=== PATIENT | male | born 1960 | race Caucasian/White ===

== ENCOUNTER 2021-01-20 09:05 | Day surgery (SDC) | payer OTHER, SELFPAY ==
[2021-01-13 10:13] LABS: BASOPHILS % (AUTO) 0.5 % (0.0-2.0); EOSINOPHILS # (AUTO) 0.1 K/uL (0.0-0.4); EOSINOPHILS % (AUTO) 1.5 % (0.0-4.0); HEMATOCRIT 48.4 % (36-54); HEMOGLOBIN 16.4 g/dL (14.0-18.0); LYMPHOCYTES % (AUTO) 39.3 % (20.5-51.5); MEAN CORPUSCULAR HEMOGLOBIN 32 pg (27-31); MEAN CORPUSCULAR HGB CONC 34 % (32-36); MEAN CORPUSCULAR VOLUME 94 fL (79.0-98.0); MONOCYTES # (AUTO) 0.5 K/uL (0.0-1.0); MONOCYTES % (AUTO) 9.6 % (1.7-9.3); NEUTROPHILS # (AUTO) 2.5 K/uL (1.8-7.7); NEUTROPHILS % (AUTO) 49.1 % (40.0-70.0); PLATELET COUNT (AUTO) 122 K/uL (130-430); RED BLOOD CELL COUNT(AUTO) 5.15 MIL/uL (4.2-6.2); RED CELL DISTRIBUTION WIDTH 13.6 % (9.0-15.0); WHITE BLOOD COUNT (AUTO) 5.1 K/uL (4.8-10.8)
[2021-01-13 10:16] LABS: BILIRUBIN,URINE NEGATIVE (NEGATIVE); BLOOD, URINE NEGATIVE (NEGATIVE); CLARITY/URINE CLEAR (CLEAR); COLOR,URINE YELLOW (YELLOW); GLUCOSE,URINE 1+ (NEGATIVE); KETONES,URINE NEGATIVE (NEGATIVE); LEUKOCYTE ESTERASE ,URINE NEGATIVE (NEGATIVE); NITRITE, URINE NEGATIVE (NEGATIVE); PROTEIN URINE 1+ (NEGATIVE); UROBILINOGEN,URINE 0.2 (0.2-1.0)
[2021-01-13 10:17] LABS: CALCIUM 9.4 mg/dL (8.4-11.0); CREATININE 1.28 mg/dL (0.55-1.30); POTASSIUM 3.9 mmol/L (3.5-5.1)
[2021-01-13 10:20] LABS: INR 1.1 (0.80-1.20)
[2021-01-13 11:33] LABS: BACTERIA,URINE None Seen /HPF (None Seen); RBC,URINE 0-3 /HPF (0-3); WBC,URINE NONE SEEN /HPF (0-3)
[~2021-01-20] VITALS: Ht 160 cm; Wt 77.1 kg
[~2021-01-20 09:05] MED LIST: cefTRIAXone 1 GM IVPB PREMIX 50 ML IV ONE
[2021-01-20] MEDS ORDERED: LR 1,000 ML IV SCH (13:45)
[2021-01-20] MEDS ORDERED: HYDROmorphone 1 MG/ML INJ. CARTRIDGE IVP PRN (13:45)
[2021-01-20] MEDS ORDERED: KETOROLAC TROMETHAMINE 30 MG VIAL IVP PRN (13:45)
[2021-01-20] MEDS ORDERED: ONDANSETRON HCL 4 MG/2 ML VIAL IVP PRN (13:45)
[2021-01-20] MEDS ORDERED: MEPERIDINE HCL/PF 25 MG/ML DISP.SYRIN IVP PRN (13:45)
[2021-01-20] MEDS ORDERED: ONDANSETRON HCL 4 MG/2 ML VIAL ONE (14:14)
[2021-01-20] MEDS ORDERED: SUCCINYLCHOLINE CHLORIDE 20 MG/ML(QUELICIN) ONE (14:14)
[2021-01-20] MEDS ORDERED: PROPOFOL 200MG/ 20ML VIAL (DIPRIVAN) IV ONE (14:14)
[2021-01-20] MEDS ORDERED: METOCLOPRAMIDE HCL 10 MG/2 ML VIAL ONE (14:14)
[2021-01-20] MEDS ORDERED: MIDAZOLAM HCL 5 MG/ML VIAL (VERSED) IV ONE (14:14)
[2021-01-20] MEDS ORDERED: SEVOFLURANE 15 MIN GAS INH ONE (14:14)
[2021-01-20] MEDS ORDERED: fentaNYL CITRATE/PF 100 MCG/2 ML AMP ONE (14:14)
[2021-01-20] MEDS ORDERED: LR 1,000 ML IV.SOLN IV ONE (14:14)
[2021-01-20] MEDS ORDERED: NS IRRIG SOLN 1000 ML IR ONE (14:14)
[2021-01-20] MEDS ORDERED: ePHEDrine sulfate 50 MG/ML VIAL ONE (14:14)
[2021-01-20] MEDS ORDERED: DEXAMETHASONE SOD PHOSPHATE 4 MG/ML VIAL ONE (14:14)
[2021-01-20] MEDS ORDERED: WATER FOR IRRIGATION,STERILE 1,000 ML IRRIG.SOLN IR ONE (14:14)
[2021-01-20] MEDS ORDERED: BUPIVACAINE /PF 0.25% 30 ML VIAL INJ ONE (14:14)
[2021-01-20 15:59] VITALS: BP_SYST 127
== END 2021-01-20 16:40 | disposition home or self-care (01) ==
LOC: SDS 09:05 → SMU 09:10 → SDS 16:40
PROVIDERS: ATTEND Urology
DX: R39.15 Urgency of urination (principal); R35.0 Frequency of micturition; N32.81 Overactive bladder; Z79.01 Long term (current) use of anticoagulants; Z79.899 Other long term (current) drug therapy; Z20.822 Contact with and (suspected) exposure to COVID-19
CPT/HCPCS: 36415; 64581; 71046; 76000; 80048; 81000; 82962; 85025; 85610; 85730; 87086; C1767; C1769; C1778; C1787; J0330; J0696; J1100; J2250; J2405; J2704; J2765; J3010; J3490; J7120; U0003

== ENCOUNTER 2021-03-10 06:54 | Day surgery (SDC) | payer OTHER, SELFPAY ==
[~2021-03-10] VITALS: Ht 160 cm; Wt 77.1 kg
[2021-03-10] MEDS ORDERED: fentaNYL CITRATE/PF 100 MCG/2 ML AMP ONE (08:34)
[2021-03-10] MEDS ORDERED: SIMETHICONE 40 MG/0.6 ML ML ONE (08:34)
[2021-03-10] MEDS ORDERED: MIDAZOLAM HCL 5 MG/5 ML VIAL ONE (08:34)
[2021-03-10 14:48] VITALS: BP_SYST 116
== END 2021-03-10 11:40 | disposition home or self-care (01) ==
LOC: SDS 06:54 → SMU 06:56 → EDUNIT# 08:00 → SDS 11:40
PROVIDERS: ATTEND Internal Medicine Gastroenterology
DX: Z12.11 Encounter for screening for malignant neoplasm of colon (principal); D12.8 Benign neoplasm of rectum; K57.30 Diverticulosis of large intestine without perforation or abscess without bleeding; K64.8 Other hemorrhoids; K64.4 Residual hemorrhoidal skin tags; Z86.010 Personal history of colon polyps; Z79.899 Other long term (current) drug therapy; Z20.822 Contact with and (suspected) exposure to COVID-19
CPT/HCPCS: 45385; 82962; 88305; 99152; G0378; J2250; J3010; U0003

== ENCOUNTER 2022-05-11 16:39 | Emergency (ER) | payer OTHER ==
[~2022-05-11] VITALS: Ht 160 cm; Wt 74.8 kg
[2022-05-11 17:14] VITALS: BP_SYST 126
[2022-05-11 17:47] LABS: HEMATOCRIT 48.8 % (36-54); HEMOGLOBIN 16.1 g/dL (14.0-18.0); MEAN CORPUSCULAR HEMOGLOBIN 31 pg (27-31); MEAN CORPUSCULAR HGB CONC 33 % (32-36); MEAN CORPUSCULAR VOLUME 93 fL (79.0-98.0); PLATELET COUNT (AUTO) 169 K/uL (130-430); RED BLOOD CELL COUNT(AUTO) 5.25 MIL/uL (4.2-6.2); RED CELL DISTRIBUTION WIDTH 14.5 % (9.0-15.0); WHITE BLOOD COUNT (AUTO) 11.7 K/uL (4.8-10.8)
[2022-05-11 17:56] LABS: ANION GAP 9 (5-15); CHLORIDE 104 mmol/L (98-107); GLUCOSE 310 mg/dL (70-99); UREA NITROGEN, BLOOD 28 mg/dL (8-21)
[2022-05-11 17:58] LABS: GFR AFRICAN AMERICAN 56 mL/min (>90)
[2022-05-11 18:08] LABS: ALANINE AMINOTRANSFERASE 41 U/L (12-78); ALBUMIN 3.6 g/dL (3.4-4.8); ASPARTATE AMINOTRANSFERASE 20 U/L (10-37); TOTAL BILIRUBIN 0.4 mg/dL (0.0-1.0)
[2022-05-11 18:10] LABS: C-REACTIVE PROTEIN QUANT < 0.2 mg/dL (0-0.5)
[2022-05-11 18:51] LABS: BAND % (MANUAL) 1 % (0-6); BASOPHILS % (MANUAL) 0 % (0-2); EOSINOPHILS % (MANUAL) 0 % (0-7); LYMPHOCYTES % (MANUAL) 7 % (20-46); MONOCYTES % (MANUAL) 16 % (0-11)
[2022-05-11] MEDS ORDERED: HYDR-3917 PO (21:07)
[2022-05-11 22:03] VITALS: BP_SYST 126
== END 2022-05-11 22:03 | disposition home or self-care (01) ==
LOC: SED 16:39
DX: J18.9 Pneumonia, unspecified organism (principal); R07.81 Pleurodynia; R05.9 Cough, unspecified; E78.5 Hyperlipidemia, unspecified; E11.9 Type 2 diabetes mellitus without complications; I10 Essential (primary) hypertension; Z79.899 Other long term (current) drug therapy; Z20.822 Contact with and (suspected) exposure to COVID-19
CPT/HCPCS: 36415; 71045; 76376; 80053; 82550; 83605; 83880; 85007; 85027; 86140; 99285

== ENCOUNTER 2022-06-17 06:26 | Outpatient (CLI) | payer OTHER ==
[~2022-06-17 06:26] MED LIST changes: +HYDR-3917 PO; -cefTRIAXone 1 GM IVPB PREMIX 50 ML IV ONE
[2022-06-17] MEDS ORDERED: REGADENOSON 0.4 MG/5 ML SYRINGE IVP ONE (08:00)
== END 2022-06-17 19:49 | disposition home or self-care (01) ==
LOC: SNM 06:26
PROVIDERS: ATTEND Internal Medicine Cardiovascular Disease
DX: I48.20 Chronic atrial fibrillation, unspecified (principal); R00.2 Palpitations
CPT/HCPCS: 78452; 93017; A9500; J2785

== ENCOUNTER 2023-02-04 10:46 | Outpatient (CLI) | payer OTHER | END 2023-02-04 18:23 | disposition home or self-care (01) | LOC: SRD 10:46 | PROVIDERS: ATTEND Urology Pediatric Urology | DX: N20.0 Calculus of kidney (principal); R10.9 Unspecified abdominal pain | CPT/HCPCS: 74018 ==

== ENCOUNTER 2023-05-19 10:26 | Outpatient (CLI) | payer OTHER | END 2023-05-19 19:07 | disposition home or self-care (01) | LOC: SCA 10:26 | PROVIDERS: ATTEND Internal Medicine Cardiovascular Disease | DX: I08.3 Combined rheumatic disorders of mitral, aortic and tricuspid valves (principal) | CPT/HCPCS: 93306 ==

== ENCOUNTER 2023-09-28 22:24 | Inpatient (IN) | payer OTHER ==
[~2023-09-28] VITALS: Ht 160 cm; Wt 74.8 kg
[2023-09-28 23:22] LABS: BASOPHILS % (AUTO) 0.6 % (0.0-2.0); BILIRUBIN,URINE NEGATIVE (NEGATIVE); BLOOD, URINE NEGATIVE (NEGATIVE); COLOR,URINE YELLOW (YELLOW); EOSINOPHILS # (AUTO) 0.1 K/uL (0.0-0.4); EOSINOPHILS % (AUTO) 2.3 % (0.0-4.0); GLUCOSE,URINE 3+ (NEGATIVE); HEMATOCRIT 46.9 % (36-54); HEMOGLOBIN 15.9 g/dL (14.0-18.0); KETONES,URINE NEGATIVE (NEGATIVE); LEUKOCYTE ESTERASE ,URINE NEGATIVE (NEGATIVE); LYMPHOCYTES # (AUTO) 1.7 K/uL (1.0-5.5); LYMPHOCYTES % (AUTO) 27.5 % (20.5-51.5); MEAN CORPUSCULAR HEMOGLOBIN 32 pg (27-31); MEAN CORPUSCULAR HGB CONC 34 % (32-36); MEAN CORPUSCULAR VOLUME 95 fL (79.0-98.0); MONOCYTES % (AUTO) 16.8 % (1.7-9.3); NEUTROPHILS # (AUTO) 3.2 K/uL (1.8-7.7); NEUTROPHILS % (AUTO) 52.8 % (40.0-70.0); NITRITE, URINE NEGATIVE (NEGATIVE); PLATELET COUNT (AUTO) 128 K/uL (130-430); PROTEIN URINE TRACE (NEGATIVE); RED BLOOD CELL COUNT(AUTO) 4.95 MIL/uL (4.2-6.2); RED CELL DISTRIBUTION WIDTH 14.7 % (9.0-15.0); UROBILINOGEN,URINE 0.2 (0.2-1.0); WHITE BLOOD COUNT (AUTO) 6.1 K/uL (4.8-10.8)
[2023-09-28 23:40] LABS: CLARITY/URINE HAZY (CLEAR)
[2023-09-28 23:41] VITALS: BP_SYST 112; PULSE 89; RESP 18; TEMP 97.9; O2SAT 98
[2023-09-28 23:51] LABS: BACTERIA,URINE None Seen /HPF (None Seen); RBC,URINE 0-3 /HPF (0-3); WBC,URINE 0-3 /HPF (0-3)
[2023-09-29] VITALS (7 sets, daily range): BP systolic 115–139; PULSE 77–81; RESP 18–20; TEMP 95.1–98.6; O2SAT 93–99
[2023-09-29 00:07] LABS: ALBUMIN 3.8 g/dL (3.4-4.8); BILIRUBIN,DIRECT 0.2 mg/dL (0.0-0.3); CALCIUM 8.7 mg/dL (8.4-11.0); CREATININE 1.61 mg/dL (0.55-1.30); POTASSIUM 3.8 mmol/L (3.5-5.1); TOTAL BILIRUBIN 0.7 mg/dL (0.0-1.0); TOTAL PROTEIN, SERUM 7.6 g/dL (6.4-8.3)
[2023-09-29] MEDS: ASPIRIN 325 MG TABLET PO ONE ×2 (03:18→04:33)
[2023-09-29] MEDS: MORPHINE 4 MG INJ. 4 MG/ML VIAL IVP ONE (03:18)
[2023-09-29] MEDS: NITROGLYCERIN 1 INCH (GM) OINT. TP ONE (03:19)
[2023-09-29] MEDS ORDERED: CARV25TA55 PO (03:31)
[2023-09-29] MEDS ORDERED: ASA81 PO (03:31)
[2023-09-29] MEDS ORDERED: AMLO2.5T2 PO (03:31)
[2023-09-29] MEDS ORDERED: LIP40 PO (03:31)
[2023-09-29] MEDS ORDERED: FENO48TA8 PO (03:31)
[2023-09-29] MEDS ORDERED: ZOLP5TAB2 PO (03:31)
[2023-09-29] MEDS ORDERED: GLIP10TA21 PO (03:31)
[2023-09-29] MEDS ORDERED: APIX5TAB PO (03:32)
[2023-09-29] MEDS: ENOXAPARIN SODIUM 80 MG/0.8 ML SYRINGE SUBCUT ONE (04:42)
[2023-09-29] MEDS ORDERED: ACETAMINOPHEN 325 MG TABLET PO PRN (05:00)
[2023-09-29] MEDS ORDERED: IPRATROPIUM BROM 0.5 MG/2.5 ML VIAL.NEB (ATROVENT) INH PRN (05:00)
[2023-09-29] MEDS ORDERED: ONDANSETRON HCL 4 MG/2 ML VIAL IVP PRN (05:00)
[2023-09-29] MEDS ORDERED: NITROGLYCERIN 0.4 MG TAB.SUBL SL PRN (05:00)
[2023-09-29] MEDS ORDERED: ALBUTEROL SULFATE 0.083% 2.5 MG/3 ML VIAL.NEB INH PRN (05:00)
[2023-09-29] MEDS ORDERED: DEXTROSE 50% JECT 50 ML DISP.SYRIN IVP PRN (05:15)
[2023-09-29] MEDS ORDERED: D5W 1,000 ML IV PRN (05:15)
[2023-09-29] MEDS ORDERED: GLUCOSE (DEXTROSE) ORAL GEL -Adults PO PRN (05:15)
[2023-09-29] MEDS: ASPIRIN 81 MG TAB.CHEW PO SCH (08:05)
[2023-09-29] MEDS: amLODIPine BESYLATE 5 MG TABLET PO SCH (08:05)
[2023-09-29] MEDS: FENOFIBRATE NANOCRYSTALLIZED 48 MG TABLET (TRICOR) PO SCH (08:36)
[2023-09-29] MEDS: APIXABAN 2.5 MG TABLET PO SCH (08:38)
[2023-09-29] MEDS: CARVEDILOL 25 MG TABLET (COREG) PO SCH (08:40)
[2023-09-29] MEDS: MORPHINE 2 MG/ML INJ. SYRINGE IVP PRN (08:57)
[2023-09-29] MEDS ORDERED: NOREPINEPHRINE BITARTRATE 4 MG in NS 246 ML IV PRN (10:00)
[2023-09-29] MEDS: INSULIN REGULAR, HUMAN 100 UNITS/ML, 3 ML VIAL (humuLIN R) SUBCUT PRN (11:28)
[2023-09-29 11:36] LABS: CHOLESTEROL 111 mg/dL (<200); HDL CHOLESTEROL 48 mg/dL (>45); TRIGLYCERIDES 115 mg/dL (30-150)
[2023-09-29 15:41] LABS: BASOPHILS % (AUTO) 0.7 % (0.0-2.0); EOSINOPHILS # (AUTO) 0.1 K/uL (0.0-0.4); EOSINOPHILS % (AUTO) 1.9 % (0.0-4.0); HEMATOCRIT 47.8 % (36-54); LYMPHOCYTES # (AUTO) 1.7 K/uL (1.0-5.5); LYMPHOCYTES % (AUTO) 24.7 % (20.5-51.5); MEAN CORPUSCULAR HEMOGLOBIN 32 pg (27-31); MEAN CORPUSCULAR HGB CONC 34 % (32-36); MEAN CORPUSCULAR VOLUME 95 fL (79.0-98.0); MONOCYTES % (AUTO) 14.6 % (1.7-9.3); NEUTROPHILS % (AUTO) 58.1 % (40.0-70.0); PLATELET COUNT (AUTO) 132 K/uL (130-430); RED BLOOD CELL COUNT(AUTO) 5.03 MIL/uL (4.2-6.2); RED CELL DISTRIBUTION WIDTH 14.8 % (9.0-15.0)
[2023-09-29 16:17] LABS: ALBUMIN 3.6 g/dL (3.4-4.8); CALCIUM 8.9 mg/dL (8.4-11.0); CREATININE 1.39 mg/dL (0.55-1.30); POTASSIUM 4.1 mmol/L (3.5-5.1); TOTAL BILIRUBIN 0.5 mg/dL (0.0-1.0); TOTAL PROTEIN, SERUM 7.4 g/dL (6.4-8.3)
[2023-09-29] MEDS: NAPROXEN 250 MG TABLET PO PRN (16:17)
[2023-09-29 17:18] LABS: HEMOGLOBIN A1C 7.29 % (<5.7)
[2023-09-29] MEDS: ATORVASTATIN 20 MG TABLET PO SCH (20:14)
[2023-09-30] VITALS (7 sets, daily range): BP systolic 122–138; PULSE 77–99; RESP 17–19; TEMP 97.2–98.5; O2SAT 95–99
[2023-09-30] MEDS: HYDROcodone/ACETAMIN 5-325 MG TAB (NORCO/ VICODIN) PO PRN (04:43)
[2023-09-30 06:15] LABS: BASOPHILS % (AUTO) 0.3 % (0.0-2.0); EOSINOPHILS # (AUTO) 0.2 K/uL (0.0-0.4); HEMATOCRIT 48.1 % (36-54); HEMOGLOBIN 15.9 g/dL (14.0-18.0); LYMPHOCYTES # (AUTO) 1.4 K/uL (1.0-5.5); LYMPHOCYTES % (AUTO) 15.4 % (20.5-51.5); MEAN CORPUSCULAR HEMOGLOBIN 32 pg (27-31); MEAN CORPUSCULAR HGB CONC 33 % (32-36); MEAN CORPUSCULAR VOLUME 95 fL (79.0-98.0); MONOCYTES # (AUTO) 1.1 K/uL (0.0-1.0); NEUTROPHILS # (AUTO) 6.6 K/uL (1.8-7.7); NEUTROPHILS % (AUTO) 70.3 % (40.0-70.0); PLATELET COUNT (AUTO) 128 K/uL (130-430); RED BLOOD CELL COUNT(AUTO) 5.05 MIL/uL (4.2-6.2); RED CELL DISTRIBUTION WIDTH 14.4 % (9.0-15.0); WHITE BLOOD COUNT (AUTO) 9.4 K/uL (4.8-10.8)
[2023-09-30 06:44] LABS: ALBUMIN 3.8 g/dL (3.4-4.8); CALCIUM 8.3 mg/dL (8.4-11.0); CREATININE 1.37 mg/dL (0.55-1.30); TOTAL BILIRUBIN 0.8 mg/dL (0.0-1.0); TOTAL PROTEIN, SERUM 7.5 g/dL (6.4-8.3)
[2023-09-30] MEDS: COLCHICINE 0.6 MG TABLET PO SCH (08:14)
[2023-09-30] MEDS: DOXYCYCLINE HYCLATE 100 MG TABLET PO SCH (08:14)
[2023-09-30] MEDS: DOCUSATE SODIUM 100 MG CAPSULE PO SCH (08:16)
[2023-09-30] MEDS: BENZONATATE 100 MG CAPSULE (TESSALON) PO PRN (08:27)
[2023-09-30] MEDS ORDERED: NAPROXEN 250 MG TABLET PO SCH (09:00)
[2023-09-30] MEDS: CYCLOBENZAPRINE HCL 10 MG TABLET (FLEXERIL) PO ONE (11:11)
[2023-09-30] MEDS: LIDOCAINE PATCH 5% 1 EA TP ONE (11:11)
[2023-09-30] MEDS: CYCLOBENZAPRINE HCL 10 MG TABLET (FLEXERIL) PO SCH (15:08)
[2023-09-30] MEDS: LACTULOSE 20 GM/30 ML UDC PO PRN (15:09)
[2023-10-01] VITALS: BP_SYST 134; PULSE 99; RESP 17; TEMP 97.8; O2SAT 98
[2023-10-01 08:00] VITALS: BP_SYST 124; PULSE 102; RESP 18; TEMP 97.3; O2SAT 96
[2023-10-01 08:13] LABS: BASOPHILS % (AUTO) 0.5 % (0.0-2.0); EOSINOPHILS # (AUTO) 0.2 K/uL (0.0-0.4); EOSINOPHILS % (AUTO) 2.9 % (0.0-4.0); HEMATOCRIT 47.4 % (36-54); HEMOGLOBIN 15.7 g/dL (14.0-18.0); LYMPHOCYTES # (AUTO) 1.5 K/uL (1.0-5.5); LYMPHOCYTES % (AUTO) 27.8 % (20.5-51.5); MEAN CORPUSCULAR HEMOGLOBIN 32 pg (27-31); MEAN CORPUSCULAR HGB CONC 33 % (32-36); MEAN CORPUSCULAR VOLUME 96 fL (79.0-98.0); MONOCYTES # (AUTO) 0.8 K/uL (0.0-1.0); MONOCYTES % (AUTO) 13.7 % (1.7-9.3); NEUTROPHILS % (AUTO) 55.1 % (40.0-70.0); PLATELET COUNT (AUTO) 129 K/uL (130-430); RED BLOOD CELL COUNT(AUTO) 4.97 MIL/uL (4.2-6.2); RED CELL DISTRIBUTION WIDTH 14.3 % (9.0-15.0); WHITE BLOOD COUNT (AUTO) 5.5 K/uL (4.8-10.8)
[2023-10-01 08:30] LABS: ALBUMIN 3.5 g/dL (3.4-4.8); CALCIUM 8.7 mg/dL (8.4-11.0); CREATININE 1.31 mg/dL (0.55-1.30); TOTAL BILIRUBIN 1.1 mg/dL (0.0-1.0); TOTAL PROTEIN, SERUM 7.2 g/dL (6.4-8.3)
[2023-10-01] MEDS: LIDOCAINE PATCH 5% 1 EA TP SCH (08:37)
[2023-10-01 08:45] VITALS: O2SAT 98
[2023-10-01] MEDS ORDERED: CYCL10TA25 PO (09:24)
[2023-10-01] MEDS ORDERED: DOXY100C5 PO (09:24)
[2023-10-01] MEDS ORDERED: COLC0.6T67 PO (09:24)
[2023-10-01] MEDS ORDERED: Lidocaine Patch 5% TP (09:24)
[2023-10-01] MEDS ORDERED: BENZ100C92 PO (09:24)
[2023-10-01 11:06] VITALS: BP_SYST 115; PULSE 78; RESP 15; TEMP 97.2; O2SAT 97
[2023-10-01 13:50] VITALS: BP_SYST 101; PULSE 84; RESP 16; TEMP 97.5; O2SAT 98
== END 2023-10-01 14:45 | disposition home or self-care (01) | DRG 204 ==
LOC: SED 22:24 → STU 09-29 04:48
PROVIDERS: ADMIT Internal Medicine; ATTEND Internal Medicine
DX: R07.81 Pleurodynia (principal); I13.0 Hypertensive heart and chronic kidney disease with heart failure and stage 1 through stage 4 chronic kidney disease, or unspecified chronic kidney disease; I48.20 Chronic atrial fibrillation, unspecified; I25.10 Atherosclerotic heart disease of native coronary artery without angina pectoris; N18.30 Chronic kidney disease, stage 3 unspecified; I50.9 Heart failure, unspecified; N40.0 Benign prostatic hyperplasia without lower urinary tract symptoms; Z20.822 Contact with and (suspected) exposure to COVID-19; E11.22 Type 2 diabetes mellitus with diabetic chronic kidney disease; E66.9 Obesity, unspecified; E78.5 Hyperlipidemia, unspecified; Z68.29 Body mass index [BMI] 29.0-29.9, adult; Z79.01 Long term (current) use of anticoagulants; Z83.3 Family history of diabetes mellitus; Z95.1 Presence of aortocoronary bypass graft; Z79.82 Long term (current) use of aspirin; Z79.899 Other long term (current) drug therapy
CPT/HCPCS: 36415; 71045; 80048; 80053; 80061; 80076; 81000; 81001; 81015; 82948; 83037; 83880; 84484; 85025; 85379; 85651; 93306; 94760; 99285; G0378; J1650; J1815; J2270